=== PATIENT | female | born 2000 | race Two or more races ===

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

== ENCOUNTER 2021-08-04 18:02 | Emergency (ER) | payer MEDICAID ==
[~2021-08-04] VITALS: Ht 172.7 cm; Wt 91.2 kg
[~2021-08-04 18:02] MED LIST changes: -LIDOCAINE W/ EPINEPHRINE 1% 20ML VIAL ID ONE; -LORazepam 2MG/ML-1ML VIAL IV ONE; -LORazepam 2MG/ML-1ML VIAL ONE; -NEOMYCIN-BACITRACIN-POLYM UNITDOSE PKG TOP OINT TOP ONE; -cefTRIAXone 1GM/50ML D5W 50 ML IV ONE
[2021-08-04 18:30] VITALS: BP 111/80
[2021-08-04 19:25] LABS: Basophils # (auto) 0.1 10 ^3/uL (0-0.2); Basophils % (auto) 0.4 % (0.0-2.0); Eosinophils # (auto) 0.3 10 ^3/uL (0-0.8)
[2021-08-04 19:28] LABS: Eosinophils % (auto) 1.8 % (0.0-7.0); Hematocrit 41.6 % (36.0-46.0); Hemoglobin 14.1 g/dL (12.2-16.2); Lymphocytes # (auto) 2.3 10 ^3/uL (0.4-5.4); Lymphocytes % (auto) 13.9 % (10.0-50.0); Mean Corpuscular Hemoglobin 32.3 pg (28.0-32.0); Mean Corpuscular Hgb Conc. 33.8 g/dL (32.0-36.0); Mean Corpuscular Volume 95.6 fL (80.0-100.0); Monocytes % (auto) 11.8 % (0.0-12.0); Neutrophils # (auto) 12.1 10 ^3/uL (1.6-8.6); Neutrophils % (auto) 72.1 % (37.0-80.0); Red Blood Cells 4.35 10^6/uL (4.0-5.20); Red Cell Distribution Width 13.6 % (11.8-14.3); White Blood Cell 16.8 10^3/uL (4.4-10.8)
[2021-08-04 19:40] LABS: Albumin 3.5 g/dL (3.4-5.0); Calcium 8.9 mg/dL (8.5-10.1); Magnesium 2.1 mg/dL (1.6-2.6)
[2021-08-04] MEDS ORDERED: IOHEXOL 300 MG/ML 100ML BOTTLE IJ ONE (23:01)
== END 2021-08-05 03:43 | disposition left against medical advice (07) ==
LOC: EDBD 18:02 → ER 18:02
DX: R10.84 Generalized abdominal pain (principal); Z79.899 Other long term (current) drug therapy; Z88.0 Allergy status to penicillin
CPT/HCPCS: 36415; 80053; 83605; 83690; 83735; 84702; 85025; 87040; 93005

== ENCOUNTER 2021-11-16 20:09 | Emergency (ER) | payer OTHER, MEDICAID ==
[~2021-11-16] VITALS: Ht 172.7 cm; Wt 90.7 kg
[2021-11-16] MEDS ORDERED: SODIUM CHLORIDE 0.9% 1,000 ML IV ONE (20:30)
[2021-11-16] MEDS ORDERED: ONDANSETRON HCL 4 MG/2 ML VIAL IV ONE (20:30)
[2021-11-16] MEDS ORDERED: HYDROcodone-ACET 10/325MG TAB PO ONE (22:15)
[2021-11-16 22:29] LABS: Hematocrit 32.8 % (36.0-46.0); Hemoglobin 11.2 g/dL (12.2-16.2); Mean Corpuscular Hemoglobin 34.9 pg (28.0-32.0); Mean Corpuscular Hgb Conc. 34.2 g/dL (32.0-36.0); Mean Corpuscular Volume 101.8 fL (80.0-100.0); Red Blood Cells 3.22 10^6/uL (4.0-5.20); Red Cell Distribution Width 19.3 % (11.8-14.3); White Blood Cell 17.1 10^3/uL (4.4-10.8)
[2021-11-16 22:30] LABS: Basophils % (manual) 0 (0.0-2.0); Myelocytes % 0; Promyelocytes % 0
[2021-11-16 22:51] LABS: Albumin 2.8 g/dL (3.4-5.0); Anion Gap 8 (5-15); BUN/Creatinine Ratio 15.5; Blood Urea Nitrogen 9 mg/dL (7-18); Calcium 7.7 mg/dL (8.5-10.1); Carbon Dioxide 21 mmol/L (21-32); Chloride 112 mmol/L (98-107); GFR African American 170 mL/min; GFR Non-African American 141 mL/min; Glucose 125 mg/dL (74-106); Lipase 134 U/L (73-393); Potassium 3.6 mmol/L (3.5-5.1); Sodium 141 mmol/L (136-145)
[2021-11-16 22:54] LABS: Lymphocytes % (manual) 18 (10.0-50.0); Metamyelocytes % 3; Monocytes % (manual) 21 (0-12)
[2021-11-16 22:55] LABS: Band Neutrophils % (manual) 7; Blast Cells 1; Eosinophils % (manual) 6 (0-7); Reactive Lymphocytes 1
[2021-11-16 23:00] LABS: Alanine Aminotransferase 62 U/L (13-56); Alkaline Phosphatase 128 U/L (45-117); Aspartate Aminotransferase 28 U/L (15-37); Bilirubin, Total 0.2 mg/dL (0.2-1.0); Total Protein 6.4 g/dL (6.4-8.2)
[2021-11-17 00:34] VITALS: BP 97/57
== END 2021-11-17 00:46 | disposition home or self-care (01) ==
LOC: ER 20:13
DX: C80.1 Malignant (primary) neoplasm, unspecified (principal); C78.89 Secondary malignant neoplasm of other digestive organs; C78.7 Secondary malignant neoplasm of liver and intrahepatic bile duct; Z88.0 Allergy status to penicillin
CPT/HCPCS: 36415; 71045; 74177; 80053; 83690; 84484; 84702; 85007; 85027; 96361; 96374; 99285; J2405; J7030